=== PATIENT | male | born 1965 | race Caucasian/White ===

== ENCOUNTER 2022-04-27 14:17 | Emergency (ER) | payer OTHER ==
[2022-04-27] MEDS ORDERED: Cephalexin 500 MG Cap ONE (14:45)
== END 2022-04-27 14:50 | disposition home or self-care (01) ==
LOC: LB.ED 14:17
DX: S60.451A Superficial foreign body of left index finger, initial encounter (principal); W45.8XXA Other foreign body or object entering through skin, initial encounter
CPT/HCPCS: 99281; 99283; A9270-GY